=== PATIENT | male | born 1965 | race African-American/Black ===

== ENCOUNTER 2021-03-20 14:28 | Emergency (ER) | payer OTHER ==
[~2021-03-20] VITALS: Ht 180.3 cm; Wt 108.0 kg
[2021-03-20 14:39] VITALS: BP 135/85
--- NOTE | 2021-03-20 15:35 | RAD ---
EXAM: Right humerus, 2 views. HISTORY: Blunt trauma. COMPARISON: None. FINDINGS: 2 views of the right humerus are obtained. There is no acute fracture, dislocation or sublu xation. IMPRESSION: No acute osseous finding. Electronically signed by: Avril Dejesus MD (03/20/2021 3:32 PM) [facility]
--- NOTE | 2021-03-20 15:42 | PHYS DOC ---
Past Medical History Past Medical History: No Pertinent History Past Surgical History: Tonsillectomy, Other Additional Past Surgical Histo: hernia x5 Smoking Status: Never Smoker Alcohol Use: Rarely General Adult EDM: Chief Complaint: UPPER EXTREMITY INJURY HPI: HPI: Patient is a 55 year old said yesterday while at work, he works at [employer], a LOAD OF timber fell down, he caught it with his right forearm. He heard a poping sound on his right arm. He has have pain in the inner part of the upper right arm since. He has been able to flex and extend his right arm , right shoulder and right elbow without any problem. There is no swelling. No weakness or numbness of right upper extremities. Review of Systems: Review of Systems: Constitutional: Denies fever or chills. [] Eyes: Denies change in visual acuity. [] HENT: Denies nasal congestion or sore throat. [] Respiratory: Denies cough or shortness of breath. [] Cardiovascular: Denies chest pain or edema. [] GI: Denies abdominal pain, nausea, vomiting, bloody stools or diarrhea. [] : Denies dysuria. [] Musculoskeletal: positive for pain in right upper arm area. Integument: Denies rash. [] Neurologic: Denies headache, focal weakness or sensory changes. [] Endocrine: Denies polyuria or polydipsia. [] Lymphatic: Denies swollen glands. [] Psychiatric: Denies depression or anxiety. [] Heart Score: C/O Chest Pain: N/A Risk Factors: Risk Factors: DM, Current or recent (<one month) smoker, HTN, HLP, family history of CAD, obesity. Risk Scores: Score 0 - 3: 2.5% MACE over next 6 weeks - Discharge Home Score 4 - 6: 20.3% MACE over next 6 weeks - Admit for Clinical Observation Score 7 - 10: 72.7% MACE over next 6 weeks - Early Invasive Strategies Allergies: Allergies: Allergies Coded Allergies Type Severity Reaction Last Updated Verified hydrocodone Allergy Intermediate hives 03/20/21 Yes Penicillins Allergy Unknown hives 03/20/21 Yes codeine Adverse Reaction Unknown nausea, "makes me feel loopy" 03/20/21 Yes Physical Exam: PE: Constitutional: Well developed, well nourished, no acute distress, non-toxic appearance. [] HENT: Normocephalic, atraumatic, bilateral external ears normal, oropharynx moist, no oral exudates, nose normal. [] Eyes: PERRLA, EOMI, conjunctiva normal, no discharge. [] Neck: Normal range of motion, no tenderness, supple, no stridor. [] Cardiovascular:Heart rate regular rhythm, no murmur [] Lungs & Thorax: Bilateral breath sounds clear to auscultation [] Skin: Warm, dry, no erythema, no rash. [] Back: No tenderness, no CVA tenderness. [] Extremities: There is no swelling or deformity of right arm muscle, patient can flex and extend right arm without any problem, right elbow and right shoulder with full range of motion. Neurologic: Alert and oriented X 3, normal motor function, normal sensory function, no focal deficits noted. [] Psychologic: Affect normal, judgement normal, mood normal. [] Current Patient Data: Vital Signs: Vital Signs Date Time Temp Pulse Resp B/P (MAP) Pulse Ox O2 Delivery O2 Flow Rate FiO2 03/20/21 14:39 98.2 70 16 135/85 (102) 97 Room Air 98.2 EKG: EKG: [] Radiology/Procedures: Radiology/Procedures: [][facility] [address] [place], [place] [id number] IMAGING REPORT Signed PATIENT: SAI PEARCE LACCOUNT: [id number] : 1965 LOCATION: ER AGE: 55 SEX: M EXAM STATUS: REG ER ORD. PHYSICIAN: PRABHU RENEE DO REASON: right arm pain after a pile of wood fell onto his right arm. PROCEDURE: HUMERUS RIGHT EXAM: Right humerus, 2 views. HISTORY: Blunt trauma. COMPARISON: None. FINDINGS: 2 views of the right humerus are obtained. There is no acute fracture, dislocation or subluxation. IMPRESSION: No acute osseous finding. Electronically signed by: Avril Dejesus MD (03/20/2021 3:32 PM) [facility] DICTATED and SIGNED BY: AVRIL DEJESUS MD DATE: 03/20/21 [id number] 0 Course & Med Decision Making: Course & Med Decision Making Pertinent Labs and Imaging studies reviewed. (See chart for details) Patient is a 55-year-old male who presented to ER due to right arm pain after he caught a falling load of 2 by 4 at work yesterday. There is no deformity of the right bicep or tricep muscle. It is suspected that he sprained his arm muscle. Patient will need to follow-up with his Workmen's Comp. doctor for further outpatient evaluation and treatment. Shira Disclaimer: Shira Disclaimer: This electronic medical record was generated, in whole or in part, using a voice recognition dictation system. Departure Departure Impression: Primary Impression: Muscle strain of right upper arm Disposition: 01 HOME / SELF CARE / HOMELESS Condition: STABLE Referrals: NO PCP (PCP) Patient Instructions: Muscle Strain Additional Instructions: Please follow up with your workman comp doctor on Monday for reevaluation. PRABHU RENEE DO March 20, 2021 15:42
== END 2021-03-20 15:51 | disposition home or self-care (01) ==
LOC: ER 14:28
DX: S46.911A Strain of unspecified muscle, fascia and tendon at shoulder and upper arm level, right arm, initial encounter (principal); Z88.5 Allergy status to narcotic agent; Z88.0 Allergy status to penicillin; W20.8XXA Other cause of strike by thrown, projected or falling object, initial encounter; Y93.89 Activity, other specified; Y92.89 Other specified places as the place of occurrence of the external cause; Y99.8 Other external cause status
CPT/HCPCS: 73060; 99283